=== PATIENT | male | born 1965 | race Caucasian/White ===

== ENCOUNTER 2020-08-12 13:59 | Emergency (ER) | payer OTHER ==
[~2020-08-12] VITALS: Ht 182.9 cm; Wt 77.3 kg
[2020-08-12 15:15] LABS: BASOPHILS % (AUTO) 1.5 % (0.0-2.0); EOSINOPHILS % (AUTO) 0.7 % (1.0-6.0); HEMATOCRIT 38.8 % (41-53); HEMOGLOBIN 12.9 g/dL (13.5-17.5); LYMPHOCYTES # (AUTO) 2.7 K/uL (1.0-4.8); LYMPHOCYTES % (AUTO) 49.5 % (22.0-44.0); MEAN CORPUSCULAR HEMOGLOBIN 33.8 pg (26.0-34.0); MEAN CORPUSCULAR HGB CONC 33.2 G/dL (31.0-37.0); MEAN CORPUSCULAR VOLUME 102 fL (80-100); MONOCYTES # (AUTO) 0.4 K/uL (0.1-1.0); MONOCYTES % (AUTO) 8.1 % (2.0-9.0); NEUTROPHILS # (AUTO) 2.2 K/uL (1.8-7.7); NEUTROPHILS % (AUTO) 40.2 % (40.0-70.0); PLATELET COUNT (AUTO) 138 K/uL (150-450); RED BLOOD CELL COUNT(AUTO) 3.81 MIL/uL (4.50-5.90); RED CELL DISTRIBUTION WIDTH 13.2 % (11.5-14.5)
[2020-08-12 15:25] LABS: GLUCOSE,POINT OF CARE 77 MG/DL (70-110)
[2020-08-12 15:27] LABS: ANION GAP 11 mmol/L (8-16); CALCIUM, TOTAL 8.8 mg/dL (8.8-10.5); CARBON DIOXIDE 26 mmol/L (22-29); CHLORIDE 99 mmol/L (98-107); CREATININE 0.63 mg/dL (0.60-1.30); GLOMERULAR FILTR. RATE CALC > 60 mL/min (>60); GLUCOSE,RANDOM 82 mg/dL (70-110); POTASSIUM 4.3 mmol/L (3.5-5.1); SODIUM SERUM 136 mmol/L (136-145); UREA NITROGEN, BLOOD 6 mg/dL (7-18)
[2020-08-12 15:32] LABS: ALANINE AMINOTRANSFERASE 87 U/L (12-78); ALBUMIN 3.6 g/dL (3.4-5.0); ALKALINE PHOSPHATASE 47 U/L (46-116); ASPARTATE AMINOTRANSFERASE 129 U/L (15-37); BILIRUBIN,TOTAL 0.7 mg/dL (0.1-1.0); TOTAL PROTEIN, SERUM 7.1 g/dL (6.4-8.2)
[2020-08-12 18:00] VITALS: BP 107/71
== END 2020-08-12 18:14 | disposition home or self-care (01) ==
LOC: EMS 14:02
DX: F10.129 Alcohol abuse with intoxication, unspecified (principal); Y90.8 Blood alcohol level of 240 mg/100 ml or more; K70.30 Alcoholic cirrhosis of liver without ascites; E11.9 Type 2 diabetes mellitus without complications; F31.9 Bipolar disorder, unspecified; F20.9 Schizophrenia, unspecified
CPT/HCPCS: 36415; 80053; 82962; 85025; 99283; G0480

== ENCOUNTER 2021-02-17 16:05 | Emergency (ER) | payer MEDICARE, OTHER ==
[~2021-02-17] VITALS: Ht 180.3 cm; Wt 81.8 kg
[2021-02-17 17:02] LABS: BASOPHILS % (AUTO) 1.7 % (0.0-2.0); EOSINOPHILS % (AUTO) 1.2 % (1.0-6.0); HEMATOCRIT 36.6 % (41-53); HEMOGLOBIN 12.3 g/dL (13.5-17.5); LYMPHOCYTES # (AUTO) 2.6 K/uL (1.0-4.8); LYMPHOCYTES % (AUTO) 50.4 % (22.0-44.0); MEAN CORPUSCULAR HEMOGLOBIN 34.8 pg (26.0-34.0); MEAN CORPUSCULAR HGB CONC 33.6 G/dL (31.0-37.0); MEAN CORPUSCULAR VOLUME 104 fL (80-100); MONOCYTES # (AUTO) 0.5 K/uL (0.1-1.0); NEUTROPHILS # (AUTO) 1.9 K/uL (1.8-7.7); NEUTROPHILS % (AUTO) 36.7 % (40.0-70.0); PLATELET COUNT (AUTO) 168 K/uL (150-450); RED BLOOD CELL COUNT(AUTO) 3.53 MIL/uL (4.50-5.90); RED CELL DISTRIBUTION WIDTH 13.1 % (11.5-14.5)
[2021-02-17 17:13] LABS: ANION GAP 14 mmol/L (8-16); CALCIUM, TOTAL 8.3 mg/dL (8.8-10.5); CARBON DIOXIDE 23 mmol/L (22-29); CHLORIDE 98 mmol/L (98-107); CREATININE 0.69 mg/dL (0.60-1.30); GLOMERULAR FILTR. RATE CALC > 60 mL/min (>60); GLUCOSE,RANDOM 85 mg/dL (70-110); POTASSIUM 3.9 mmol/L (3.5-5.1); SODIUM SERUM 135 mmol/L (136-145); UREA NITROGEN, BLOOD 8 mg/dL (7-18)
[2021-02-17 17:20] LABS: ALANINE AMINOTRANSFERASE 75 U/L (12-78); ALBUMIN 3.7 g/dL (3.4-5.0); ALKALINE PHOSPHATASE 58 U/L (46-116); ASPARTATE AMINOTRANSFERASE 85 U/L (15-37); BILIRUBIN,TOTAL 0.8 mg/dL (0.1-1.0); TOTAL PROTEIN, SERUM 7.5 g/dL (6.4-8.2)
[2021-02-17 20:34] VITALS: BP 113/67
== END 2021-02-17 21:34 | disposition home or self-care (01) ==
LOC: EMS 16:05
DX: F10.129 Alcohol abuse with intoxication, unspecified (principal); F31.9 Bipolar disorder, unspecified; E11.9 Type 2 diabetes mellitus without complications; F20.9 Schizophrenia, unspecified; Y90.8 Blood alcohol level of 240 mg/100 ml or more
CPT/HCPCS: 36415; 70450; 72125; 80053; 85025; 99285; G0480

== ENCOUNTER 2022-02-19 10:25 | Emergency (ER) | payer MEDICARE, OTHER ==
[~2022-02-19] VITALS: Ht 182.9 cm; Wt 81.8 kg
[2022-02-19 10:37] VITALS: BP 140/90
== END 2022-02-19 11:05 | disposition home or self-care (01) ==
LOC: EMS 10:48
DX: F10.20 Alcohol dependence, uncomplicated (principal); F31.9 Bipolar disorder, unspecified; E11.9 Type 2 diabetes mellitus without complications; F20.9 Schizophrenia, unspecified; Y90.9 Presence of alcohol in blood, level not specified
CPT/HCPCS: 99283; Z7502

== ENCOUNTER 2023-10-04 11:03 | Emergency (ER) | payer MEDICARE, OTHER ==
[~2023-10-04] VITALS: Ht 182.9 cm; Wt 77.3 kg
[2023-10-04 11:30] VITALS: PULSE 66; TEMP 98.3
[2023-10-04 11:34] VITALS: BP 98/62; RESP 16
[2023-10-04] MEDS ORDERED: MAGNESIUM SULFATE 2 GM, MVI, ADULT NO.1 WITH VIT K 10 ML, THIAMINE 100 MG, FOLIC ACID 1... IV ONE ×5 (12:00)
[2023-10-04 12:25] LABS: EOSINOPHILS % (AUTO) 1.1 % (1.0-6.0); HEMATOCRIT 36.8 % (41-53); HEMOGLOBIN 12.4 g/dL (13.5-17.5); LYMPHOCYTES # (AUTO) 2.1 K/uL (1.0-4.8); LYMPHOCYTES % (AUTO) 47.5 % (22.0-44.0); MEAN CORPUSCULAR HEMOGLOBIN 33.6 pg (26.0-34.0); MEAN CORPUSCULAR HGB CONC 33.6 G/dL (31.0-37.0); MEAN CORPUSCULAR VOLUME 100 fL (80-100); MONOCYTES # (AUTO) 0.4 K/uL (0.1-1.0); MONOCYTES % (AUTO) 8.4 % (2.0-9.0); NEUTROPHILS # (AUTO) 1.9 K/uL (1.8-7.7); PLATELET COUNT (AUTO) 132 K/uL (150-450); RED BLOOD CELL COUNT(AUTO) 3.68 MIL/uL (4.50-5.90); RED CELL DISTRIBUTION WIDTH 15.4 % (11.5-14.5); WHITE BLOOD COUNT (AUTO) 4.4 K/uL (4.5-11.0)
[2023-10-04 12:34] LABS: ANION GAP 12 mmol/L (8-16); CALCIUM, TOTAL 8.3 mg/dL (8.8-10.5); CARBON DIOXIDE 25 mmol/L (22-29); CHLORIDE 98 mmol/L (98-107); CREATININE 0.74 mg/dL (0.60-1.30); GLOMERULAR FILTR. RATE CALC > 60 mL/min (>60); GLUCOSE,RANDOM 83 mg/dL (70-110); SODIUM SERUM 135 mmol/L (136-145); UREA NITROGEN, BLOOD 9 mg/dL (7-18)
[2023-10-04 12:40] LABS: ALANINE AMINOTRANSFERASE 97 U/L (12-78); ALBUMIN 3.5 g/dL (3.4-5.0); ALKALINE PHOSPHATASE 69 U/L (46-116); ASPARTATE AMINOTRANSFERASE 84 U/L (15-37); BILIRUBIN,TOTAL 0.5 mg/dL (0.1-1.0); TOTAL PROTEIN, SERUM 7.1 g/dL (6.4-8.2)
[2023-10-04 12:41] LABS: ALCOHOL, BLOOD (SERUM) 364 mg/dL (0-10)
== END 2023-10-04 18:16 | disposition home or self-care (01) ==
LOC: EMS 11:03
DX: F10.229 Alcohol dependence with intoxication, unspecified (principal); F31.9 Bipolar disorder, unspecified; E11.9 Type 2 diabetes mellitus without complications; F20.9 Schizophrenia, unspecified; Y90.9 Presence of alcohol in blood, level not specified
CPT/HCPCS: 99284; 96365; 71045; 80053; 85025; 36415; G0480; J3490 ×2; J3411; J3475; J7030

== ENCOUNTER 2024-09-16 09:05 | Emergency (ER) | payer MEDICARE, OTHER ==
[~2024-09-16] VITALS: Ht 175.3 cm; Wt 81.8 kg
[2024-09-16 09:28] VITALS: TEMP 97.9
[2024-09-16 09:44] LABS: BASOPHILS % (AUTO) 1.2 % (0.0-2.0); EOSINOPHILS % (AUTO) 0.1 % (1.0-6.0); HEMATOCRIT 41.4 % (41-53); LYMPHOCYTES # (AUTO) 1.2 K/uL (1.0-4.8); LYMPHOCYTES % (AUTO) 17.7 % (22.0-44.0); MEAN CORPUSCULAR HEMOGLOBIN 35.1 pg (26.0-34.0); MEAN CORPUSCULAR HGB CONC 33.9 G/dL (31.0-37.0); MEAN CORPUSCULAR VOLUME 104 fL (80-100); MONOCYTES # (AUTO) 0.4 K/uL (0.1-1.0); MONOCYTES % (AUTO) 6.4 % (2.0-9.0); NEUTROPHILS # (AUTO) 5.1 K/uL (1.8-7.7); NEUTROPHILS % (AUTO) 74.6 % (40.0-70.0); PLATELET COUNT (AUTO) 168 K/uL (150-450); RED CELL DISTRIBUTION WIDTH 13.9 % (11.5-14.5); WHITE BLOOD COUNT (AUTO) 6.8 K/uL (4.5-11.0)
[2024-09-16 09:52] LABS: CARBON DIOXIDE 27 mmol/L (22-29); CHLORIDE 98 mmol/L (98-107); SODIUM SERUM 137 mmol/L (136-145)
[2024-09-16 09:53] LABS: ANION GAP 12 mmol/L (8-16); CALCIUM, TOTAL 8.6 mg/dL (8.8-10.5); CREATININE 0.73 mg/dL (0.60-1.30); GLOMERULAR FILTR. RATE CALC > 60 mL/min (>60); GLUCOSE,RANDOM 98 mg/dL (70-110); UREA NITROGEN, BLOOD 9 mg/dL (7-18)
[2024-09-16 09:58] LABS: ALANINE AMINOTRANSFERASE 29 U/L (12-78); ALBUMIN 3.8 g/dL (3.4-5.0); ALCOHOL, BLOOD (SERUM) < 3 mg/dL (0-10); ALKALINE PHOSPHATASE 70 U/L (46-116); ASPARTATE AMINOTRANSFERASE 35 U/L (15-37); BILIRUBIN,TOTAL 0.9 mg/dL (0.1-1.0); LIPASE 25 U/L (16-77); TOTAL PROTEIN, SERUM 7.7 g/dL (6.4-8.2)
[2024-09-16 10:03] LABS: TROPONIN I-HIGH SENSITIVITY 11 ng/L (<76)
[2024-09-16 10:37] VITALS: BP 128/86; PULSE 89; RESP 20; O2SAT 100
[2024-09-16] MEDS: MAGNESIUM OXIDE 400 MG TABLET PO ONE (10:49)
[2024-09-16] MEDS: ChlordiazePOXIDE HCL 25 MG CAPSULE PO ONE (10:49)
[2024-09-16] MEDS ORDERED: GABA-1181 PO (11:30)
== END 2024-09-16 12:02 | disposition home or self-care (01) ==
LOC: EMS 09:06
DX: F10.20 Alcohol dependence, uncomplicated (principal); E83.42 Hypomagnesemia; R53.1 Weakness; F31.9 Bipolar disorder, unspecified; E11.9 Type 2 diabetes mellitus without complications; F20.9 Schizophrenia, unspecified; Y90.9 Presence of alcohol in blood, level not specified
CPT/HCPCS: 99284; 80048; 80076; 83690; 83735; 84484; 85025; 36415; 93005; G0480

== ENCOUNTER 2024-11-08 12:12 | Emergency (ER) | payer MEDICARE, OTHER ==
[~2024-11-08] VITALS: Ht 177.8 cm; Wt 68.2 kg
[~2024-11-08 12:12] MED LIST: GABA-1181 PO
[2024-11-08 12:30] VITALS: TEMP 98.4
[2024-11-08 13:16] LABS: APPEARANCE,URINE CLEAR (CLEAR); BILIRUBIN,URINE NEGATIVE (NEGATIVE); COLOR,URINE LIGHT YELLOW (YELLOW); GLUCOSE, URINE (UA) NEGATIVE (NEGATIVE); KETONES,URINE NEGATIVE (NEGATIVE); LEUKOCYTE ESTERASE ,URINE NEGATIVE (NEGATIVE); NITRATE,URINE NEGATIVE (NEGATIVE); OCCULT BLOOD,URINE NEGATIVE (NEGATIVE); PROTEIN,URINE NEGATIVE (NEGATIVE); SPECIFIC GRAVITIY, URINE 1.007 (1.003-1.030); UROBILINOGEN,URINE <=1.0 mg/dL (<=1.0)
[2024-11-08 13:24] LABS: AMPHET/METH SCREEN,URINE NEGATIVE (NEGATIVE); BARBITURATE SCREEN, URINE NEGATIVE (NEGATIVE); BENZODIAZEPINES SCREEN,URINE NEGATIVE (NEGATIVE); CANNABINOID SCREEN,URINE NEGATIVE (NEGATIVE); COCAINE SCREEN,URINE NEGATIVE (NEGATIVE); METHADONE SCREEN, URINE NEGATIVE (NEGATIVE); OPIATE SCREEN,URINE NEGATIVE (NEGATIVE); PHENCYCLIDINE SCREEN,URINE NEGATIVE (NEGATIVE)
[2024-11-08 13:25] LABS: ALCOHOL, URINE DRUG SCREEN POSITIVE (NEGATIVE)
[2024-11-08 14:11] LABS: BASOPHILS % (AUTO) 0.3 % (0.0-2.0); HEMATOCRIT 42.2 % (41-53); HEMOGLOBIN 14.4 g/dL (13.5-17.5); LYMPHOCYTES # (AUTO) 1.7 K/uL (1.0-4.8); LYMPHOCYTES % (AUTO) 17.5 % (22.0-44.0); MEAN CORPUSCULAR HEMOGLOBIN 30.7 pg (26.0-34.0); MEAN CORPUSCULAR HGB CONC 34.2 G/dL (31.0-37.0); MEAN CORPUSCULAR VOLUME 90 fL (80-100); MONOCYTES % (AUTO) 10.2 % (2.0-9.0); PLATELET COUNT (AUTO) 284 K/uL (150-450); RED BLOOD CELL COUNT(AUTO) 4.71 MIL/uL (4.50-5.90); RED CELL DISTRIBUTION WIDTH 14.2 % (11.5-14.5); WHITE BLOOD COUNT (AUTO) 9.9 K/uL (4.5-11.0)
[2024-11-08 14:28] LABS: ANION GAP 14 mmol/L (8-16); CALCIUM, TOTAL 8.8 mg/dL (8.8-10.5); CARBON DIOXIDE 23 mmol/L (22-29); CHLORIDE 102 mmol/L (98-107); CREATININE 0.71 mg/dL (0.60-1.30); GLOMERULAR FILTR. RATE CALC > 60 mL/min (>60); GLUCOSE,RANDOM 123 mg/dL (70-110); POTASSIUM 3.3 mmol/L (3.5-5.1); SODIUM SERUM 139 mmol/L (136-145); UREA NITROGEN, BLOOD 10 mg/dL (7-18)
[2024-11-08 14:35] LABS: ALCOHOL, BLOOD (SERUM) 360 mg/dL (0-10)
[2024-11-08 18:32] VITALS: BP 108/72; PULSE 65; RESP 18; O2SAT 96
== END 2024-11-08 18:47 | disposition home or self-care (01) ==
LOC: EMS 12:12
DX: F10.229 Alcohol dependence with intoxication, unspecified (principal); F31.9 Bipolar disorder, unspecified; E11.9 Type 2 diabetes mellitus without complications; F20.9 Schizophrenia, unspecified; Z79.899 Other long term (current) drug therapy
CPT/HCPCS: 99283; 80048; 81003; 85025; 36415; 80307; G0480

== ENCOUNTER 2025-08-11 17:40 | Inpatient (IN) | payer MEDICARE, OTHER ==
[~2025-08-11] VITALS: Ht 182.9 cm; Wt 93.1 kg
[~2025-08-11 17:40] MED LIST changes: +AMLO2.5T96 PO; +FOLI-130 PO; +MULT-1192 PO; +PANT-31 PO; +THIA100T80 PO
[2025-08-11] MEDS: PERTUSS(ACELL),DIPH,TET/PF 0.5 ML SYRINGE [ADULT] IM. ONE (20:00)
[2025-08-11 20:05] LABS: PLATELET COUNT (AUTO) 248 K/uL (150-450); RED BLOOD CELL COUNT(AUTO) 3.94 MIL/uL (4.50-5.90); RED CELL DISTRIBUTION WIDTH 14.7 % (11.5-14.5); WHITE BLOOD COUNT (AUTO) 5.5 K/uL (4.5-11.0)
[2025-08-11 20:10] LABS: CALCIUM, TOTAL 8.3 mg/dL (8.8-10.5); CREATININE 0.61 mg/dL (0.60-1.30); GLOMERULAR FILTR. RATE CALC > 60 mL/min (>60); GLUCOSE,RANDOM 123 mg/dL (70-110); SODIUM SERUM 135 mmol/L (136-145); UREA NITROGEN, BLOOD 6 mg/dL (7-18)
[2025-08-11] MEDS: HYDROGEN PEROXIDE 3% 118 ML SOLUTION TP ONE (22:02)
[2025-08-11] MEDS: BACITRACIN 28 GM OINTMENT TP ONE (22:02)
[2025-08-11] MEDS ORDERED: MAGNESIUM HYDROXIDE SUSPENSION 30 ML UDCUP PO PRN (22:45)
[2025-08-11] MEDS ORDERED: ACETAMINOPHEN 325 MG TABLET PO PRN (22:45)
[2025-08-11] MEDS ORDERED: MORPHINE SULFATE 4 MG/ML SYRINGE IVP PRN (22:45)
[2025-08-11] MEDS ORDERED: ALBUTEROL SULFATE 2.5 MG/0.5 ML NEB SOLUTION NEB PRN (22:45)
[2025-08-11] MEDS ORDERED: BISACODYL 10 MG RECTAL RECTAL SUPPOSITORY PR PRN (22:45)
[2025-08-11] MEDS ORDERED: ZOLPIDEM TARTRATE 5 MG TABLET PO PRN (22:45)
[2025-08-11] MEDS ORDERED: ONDANSETRON HCL 4 MG/2 ML VIAL IVP PRN (22:45)
[2025-08-11] MEDS ORDERED: HYDROCODONE/ACETAMINOPHEN 5-325 MG TABLET PO PRN (22:45)
[2025-08-11] MEDS ORDERED: IPRATROPIUM BROMIDE 0.5 MG/2.5 ML NEB SOLUTION NEB PRN (22:45)
[2025-08-11] MEDS: MAGNESIUM SULFATE 2 GM, MVI, ADULT NO.1 WITH VIT K 10 ML, THIAMINE 100 MG, FOLIC ACID 1... IV ONE (23:27)
[2025-08-11] MEDS: HEPARIN SODIUM,PORCINE 5,000 UNITS/ML VIAL SQ SCH (23:30)
[2025-08-12] VITALS (7 sets, daily range): BP systolic 127–157; BP diastolic 53–100; PULSE 66–88; RESP 16–18; TEMP 97.3–99; O2SAT 95–100
[2025-08-12 05:50] LABS: PH,URINE DRUG SCREEN 5.0 (5.0-8.0)
[2025-08-12 05:56] LABS: ALCOHOL, URINE DRUG SCREEN POSITIVE (NEGATIVE); AMPHET/METH SCREEN,URINE NEGATIVE (NEGATIVE); BARBITURATE SCREEN, URINE NEGATIVE (NEGATIVE); CANNABINOID SCREEN,URINE NEGATIVE (NEGATIVE); COCAINE SCREEN,URINE NEGATIVE (NEGATIVE); METHADONE SCREEN, URINE NEGATIVE (NEGATIVE)
[2025-08-12] MEDS: PANTOPRAZOLE SODIUM 40 MG DR TABLET PO SCH (09:11)
[2025-08-13 05:08] VITALS: BP 145/91; PULSE 66; RESP 19; TEMP 98.2; O2SAT 97
[2025-08-13 07:57] VITALS: BP 143/98; PULSE 67; RESP 18; TEMP 98.4; O2SAT 97
[2025-08-13 09:15] LABS: PLATELET COUNT (AUTO) 227 K/uL (150-450); RED BLOOD CELL COUNT(AUTO) 4.14 MIL/uL (4.50-5.90); RED CELL DISTRIBUTION WIDTH 15.1 % (11.5-14.5); WHITE BLOOD COUNT (AUTO) 4.8 K/uL (4.5-11.0)
[2025-08-13 09:20] LABS: CALCIUM, TOTAL 9.0 mg/dL (8.8-10.5); CREATININE 0.63 mg/dL (0.60-1.30); GLOMERULAR FILTR. RATE CALC > 60 mL/min (>60); GLUCOSE,RANDOM 119 mg/dL (70-110); SODIUM SERUM 136 mmol/L (136-145); UREA NITROGEN, BLOOD 8 mg/dL (7-18)
[2025-08-13 10:05] LABS: RBC MORPHOLOGY COMMENT ABNORMAL RBC MORPH
[2025-08-13 11:21] VITALS: BP 109/80; PULSE 68; RESP 17; TEMP 98.6; O2SAT 94
[2025-08-13 15:29] VITALS: BP 146/106; PULSE 74; RESP 18; TEMP 98.2; O2SAT 96
[2025-08-13 19:58] VITALS: BP 144/97; PULSE 85; RESP 19; TEMP 98.1; O2SAT 98
[2025-08-13 23:22] VITALS: BP 148/96; PULSE 68; RESP 19; TEMP 98.6; O2SAT 97
[2025-08-14 04:10] VITALS: BP 150/99; PULSE 63; RESP 18; TEMP 98.2; O2SAT 97
[2025-08-14 09:00] VITALS: BP 112/88; PULSE 85; RESP 18; TEMP 98.3; O2SAT 98
[2025-08-14 09:49] LABS: PLATELET COUNT (AUTO) 249 K/uL (150-450); RED BLOOD CELL COUNT(AUTO) 4.09 MIL/uL (4.50-5.90); RED CELL DISTRIBUTION WIDTH 15.1 % (11.5-14.5); WHITE BLOOD COUNT (AUTO) 5.1 K/uL (4.5-11.0)
[2025-08-14 09:55] LABS: CALCIUM, TOTAL 9.3 mg/dL (8.8-10.5); CREATININE 0.67 mg/dL (0.60-1.30); GLOMERULAR FILTR. RATE CALC > 60 mL/min (>60); GLUCOSE,RANDOM 95 mg/dL (70-110); SODIUM SERUM 138 mmol/L (136-145); UREA NITROGEN, BLOOD 10 mg/dL (7-18)
[2025-08-14 11:29] LABS: RBC MORPHOLOGY COMMENT ABNORMAL RBC MORPH
[2025-08-14 11:41] VITALS: BP 135/92; PULSE 73; RESP 18; TEMP 98; O2SAT 96
[2025-08-14 15:48] VITALS: BP 129/66; PULSE 82; RESP 18; TEMP 98.1; O2SAT 96
[2025-08-14 20:20] VITALS: BP 131/89; PULSE 85; RESP 18; TEMP 98.2; O2SAT 94
[2025-08-15 00:42] VITALS: BP 137/98; PULSE 93; RESP 18; TEMP 97.7; O2SAT 97
[2025-08-15 04:58] VITALS: BP 130/90; PULSE 58; RESP 19; TEMP 98.2; O2SAT 98
[2025-08-15 07:56] VITALS: BP 124/91; PULSE 65; RESP 18; TEMP 98.1; O2SAT 96
[2025-08-15 11:20] VITALS: BP 134/90; PULSE 70; RESP 19; TEMP 97.8; O2SAT 98
[2025-08-15 15:21] VITALS: BP 138/92; PULSE 77; RESP 18; TEMP 98.2; O2SAT 98
[2025-08-15 20:00] VITALS: BP 127/85; PULSE 76; RESP 19; TEMP 98.6; O2SAT 97
[2025-08-16 00:49] VITALS: BP 126/84; PULSE 82; RESP 19; TEMP 98.4; O2SAT 96
[2025-08-16 04:13] VITALS: BP 128/72; PULSE 58; RESP 18; TEMP 97.9; O2SAT 97
[2025-08-16 08:39] VITALS: BP 124/98; PULSE 63; RESP 19; TEMP 98; O2SAT 96
[2025-08-16 11:26] VITALS: BP 98/61; PULSE 74; RESP 18; TEMP 98.8; O2SAT 96
[2025-08-16 15:16] VITALS: BP 112/76; PULSE 76; RESP 19; TEMP 98.2; O2SAT 97
== END 2025-08-16 16:40 | DRG 896 ==
LOC: EMS 17:40 → EDH 22:45 → 5N 08-12 01:30
PROVIDERS: ADMIT Hospitalist; ATTEND Hospitalist
DX: F10.129 Alcohol abuse with intoxication, unspecified (principal); J96.00 Acute respiratory failure, unspecified whether with hypoxia or hypercapnia; Z59.00 Homelessness unspecified; E11.9 Type 2 diabetes mellitus without complications; I10 Essential (primary) hypertension; H54.7 Unspecified visual loss; Y90.8 Blood alcohol level of 240 mg/100 ml or more; R53.81 Other malaise; F20.9 Schizophrenia, unspecified; R26.2 Difficulty in walking, not elsewhere classified; F31.9 Bipolar disorder, unspecified; S80.212A Abrasion, left knee, initial encounter; S80.211A Abrasion, right knee, initial encounter; W18.39XA Other fall on same level, initial encounter; Y93.89 Activity, other specified; Y92.89 Other specified places as the place of occurrence of the external cause; Y99.8 Other external cause status; Z79.899 Other long term (current) drug therapy
CPT/HCPCS: 80048; 80307; 82140; 83735; 85025; 87081; 90471; 90715; 97116; 97162; 97166; 97530; 97535; 99285; G0378; G0480; J1644; J3411; J3475; J3490; J7030

== ENCOUNTER 2025-09-14 12:59 | Inpatient (IN) | payer MEDICARE, OTHER ==
[~2025-09-14] VITALS: Ht 182.9 cm; Wt 92.5 kg
[2025-09-14 14:37] LABS: CREATININE 0.81 mg/dL (0.60-1.30); GLOMERULAR FILTR. RATE CALC > 60 mL/min (>60); GLUCOSE,RANDOM 86 mg/dL (70-110); SODIUM SERUM 135 mmol/L (136-145); UREA NITROGEN, BLOOD 8 mg/dL (7-18)
[2025-09-14 14:41] LABS: CALCIUM, TOTAL 8.3 mg/dL (8.8-10.5)
[2025-09-14 14:42] LABS: ASPARTATE AMINOTRANSFERASE 30.0 U/L (15-37); TOTAL PROTEIN, SERUM 7.2 g/dL (6.4-8.2)
[2025-09-14 14:43] LABS: ALCOHOL, BLOOD (SERUM) 341.0 mg/dL (0-10)
[2025-09-14 14:47] LABS: PLATELET COUNT (AUTO) 128 K/uL (150-450); RED BLOOD CELL COUNT(AUTO) 3.89 MIL/uL (4.50-5.90); RED CELL DISTRIBUTION WIDTH 14.4 % (11.5-14.5); WHITE BLOOD COUNT (AUTO) 5.7 K/uL (4.5-11.0)
[2025-09-14] MEDS: MAGNESIUM SULFATE 2 GM, MVI, ADULT NO.1 WITH VIT K 10 ML, THIAMINE 100 MG, FOLIC ACID 1... IV ONE (15:12)
[2025-09-14] MEDS ORDERED: ACETAMINOPHEN 325 MG TABLET PO PRN (20:00)
[2025-09-14 21:58] VITALS: BP 120/77; PULSE 69; RESP 18; TEMP 98.1; O2SAT 95
[2025-09-14] MEDS: DOCUSATE SODIUM 100 MG CAPSULE PO SCH (23:00)
[2025-09-14] MEDS ORDERED: SODIUM CHLORIDE 0.9% 1,000 ML ONE (23:05)
[2025-09-14] MEDS: 1: MAGNESIUM SULFATE 2 GM, MVI, ADULT NO.1 WITH VIT K 10 ML, THIAMINE 100 MG, FOLIC ACID IV SCH (23:10)
[2025-09-15] VITALS (7 sets, daily range): BP systolic 130–157; BP diastolic 86–106; PULSE 64–90; RESP 16–18; TEMP 97.9–99; O2SAT 95–99
[2025-09-15] MEDS: HEPARIN SODIUM,PORCINE 5,000 UNITS/ML VIAL SQ SCH
[2025-09-15] MEDS: ONDANSETRON HCL 4 MG/2 ML VIAL IVP PRN (05:31)
[2025-09-15 07:29] LABS: PLATELET COUNT (AUTO) 120 K/uL (150-450); RED BLOOD CELL COUNT(AUTO) 4.03 MIL/uL (4.50-5.90); RED CELL DISTRIBUTION WIDTH 14.7 % (11.5-14.5); WHITE BLOOD COUNT (AUTO) 6.4 K/uL (4.5-11.0)
[2025-09-15 07:40] LABS: CALCIUM, TOTAL 8.4 mg/dL (8.8-10.5); CREATININE 0.65 mg/dL (0.60-1.30); GLOMERULAR FILTR. RATE CALC > 60 mL/min (>60); GLUCOSE,RANDOM 72 mg/dL (70-110); SODIUM SERUM 139 mmol/L (136-145); UREA NITROGEN, BLOOD 7 mg/dL (7-18)
[2025-09-15 09:13] LABS: RBC MORPHOLOGY COMMENT ABNORMAL RBC MORPH
[2025-09-16 05:15] VITALS: BP 134/87; PULSE 63; RESP 18; TEMP 98.1; O2SAT 98
[2025-09-16] MEDS ORDERED: MULT-960 CHEW (08:44)
[2025-09-16 08:45] VITALS: BP 140/96; PULSE 66; TEMP 99; O2SAT 19
[2025-09-16 18:41] VITALS: BP 138/62; PULSE 65; RESP 19; TEMP 98.5; O2SAT 96
[2025-09-16 21:16] VITALS: BP 130/90; PULSE 75; RESP 18; TEMP 98.8; O2SAT 97
[2025-09-17 04:51] VITALS: BP 140/95; PULSE 78; RESP 18; TEMP 97.9; O2SAT 95
[2025-09-17 08:08] VITALS: BP 150/95; PULSE 61; RESP 18; TEMP 98.8; O2SAT 97
[2025-09-17] MEDS ORDERED: CHLO10CA7 PO (11:42)
== END 2025-09-17 12:00 | disposition home or self-care (01) | DRG 91 ==
LOC: EMS 12:59 → EDH 18:06 → 5S 21:53 → 6S 09-16 01:40
PROVIDERS: ADMIT Internal Medicine; ATTEND Internal Medicine
DX: G92.8 Other toxic encephalopathy (principal); J96.01 Acute respiratory failure with hypoxia; F10.231 Alcohol dependence with withdrawal delirium; Z59.02 Unsheltered homelessness; F10.229 Alcohol dependence with intoxication, unspecified; E11.9 Type 2 diabetes mellitus without complications; D69.6 Thrombocytopenia, unspecified; F20.9 Schizophrenia, unspecified; F31.9 Bipolar disorder, unspecified; Y90.8 Blood alcohol level of 240 mg/100 ml or more; Z79.899 Other long term (current) drug therapy; Z71.41 Alcohol abuse counseling and surveillance of alcoholic
CPT/HCPCS: 71045; 80048; 80076; 83690; 83735; 85025; 93005; 97116; 97162; 97166; 97535; 99285; G0480; J1644; J2405; J3411; J3475; J3490; J7030; 36415-L1; 36415-TC